=== PATIENT | female | born 1950 | race Caucasian/White ===

== ENCOUNTER 2019-12-17 13:33 | Emergency (ER) | payer OTHER ==
[~2019-12-17] VITALS: Ht 162.6 cm; Wt 81.6 kg
[2019-12-17 13:39] VITALS: Ht 162.6 cm; Wt 81.6 kg
[2019-12-17 15:27] VITALS: BP 147/57
== END 2019-12-17 15:27 | disposition home or self-care (01) ==
LOC: ED 13:33
DX: S39.012A Strain of muscle, fascia and tendon of lower back, initial encounter (principal); S80.02XA Contusion of left knee, initial encounter; I10 Essential (primary) hypertension; E78.00 Pure hypercholesterolemia, unspecified; W01.0XXA Fall on same level from slipping, tripping and stumbling without subsequent striking against object, initial encounter; Y93.89 Activity, other specified; Y92.89 Other specified places as the place of occurrence of the external cause; Y99.8 Other external cause status
CPT/HCPCS: J1885